=== PATIENT | female | born 1945 | race Caucasian/White ===

== ENCOUNTER 2017-02-09 13:23 | Emergency (ER) | payer MEDICARE ==
[2017-02-09] MEDS ORDERED: OXYMETAZOLINE HCL 0.05% 30 SPRAYS/BOT NS ONE (14:07)
[2017-02-09] MEDS ORDERED: TRANEXAMIC ACID 1,000 MG/10 ML VIAL IV ONE (14:13)
[2017-02-09 15:36] LABS: INR 4.81; PROTHROMBIN TIME 54.9 SECONDS (9.3-11.4)
== END 2017-02-09 16:32 | disposition home or self-care (01) ==
LOC: ED 13:23
DX: R04.0 Epistaxis (principal); I11.0 Hypertensive heart disease with heart failure; I50.9 Heart failure, unspecified; E11.9 Type 2 diabetes mellitus without complications; Z79.84 Long term (current) use of oral hypoglycemic drugs; Z79.01 Long term (current) use of anticoagulants